=== PATIENT | female | born 1965 | race Caucasian/White ===

== ENCOUNTER → 2018-06-03 09:17 | Outpatient (CLI) | payer OTHER, SELFPAY ==
--- NOTE | 2018-06-03 | DI.US.S_ITS ---
PROCEDURE: US PELVIC COMPLETE INDICATIONS: ABNORMAL UTERINE BLEEDING TECHNIQUE: Real-time scanning was performed of the pelvic organs, with image documentation. Additional endovaginal scanning was necessary due to incomplete visualization of the adnexal and endometrial structures by transabdominal scanning. COMPARISON: [facility], [place], ABDOMEN COMPLETE, 01/23/2017, 7:23. FINDINGS: Transabdominal scanning: Limited scanning through the kidneys shows no hydronephrosis. No pathologic free abdominal or pelvic fluid. Endovaginal scanning: Uterus: Uterus is normal in size at 10.8 x 7.5 x 5.7 cm. The endometrium measures 23 mm in combined thickness. There is also a vascular stalk seen along the lower uterine segment and the cervix, without a donavan associated polyp identified. Hypoechoic uterine lesions are seen, which are attributed to fibroids. They measure as follows: Right anterior uterus, subserosal, 3.3 x 2.7 x 3.2 cm, with internal calcification Right posterior uterus, subserosal, 1.7 x 1.6 x 2.1 cm Mid anterior uterus, subserosal, 1.2 x 1.2 x 1.4 cm Ovaries: The left ovary is not seen, secondary to bowel. The right ovary measures 3.2 x 2.3 x 2.1 cm. Within it, there is a 2.3 cm simple cyst. IMPRESSION: Thickened endometrial stripe measuring 2.3 cm. There is a vascular stalk seen along the endometrial canal at the level of the lower uterine segment and cervix, without a donavan polyp attached. As clinically appropriate, please correlate with hysteroscopic findings. Subserosal fibroids are seen. Left ovary not seen, secondary to overlying bowel gas. Dictated by: Philip Harrington M.D. on 06/03/2018 at 9:12 Approved by: Philip Harrington M.D. on 06/03/2018 at 9:18
== END ==
PROVIDERS: Visit Provider Nurse Practitioner Family
DX: N93.9 Abnormal uterine and vaginal bleeding, unspecified (principal); D25.2 Subserosal leiomyoma of uterus; N83.291 Other ovarian cyst, right side; N71.9 Inflammatory disease of uterus, unspecified; R93.89 Abnormal findings on diagnostic imaging of other specified body structures
CPT/HCPCS: 76830; 76856

== ENCOUNTER → 2018-06-29 08:15 | Outpatient (CLI) | payer OTHER, SELFPAY ==
[2018-06-29 09:56] LABS: HEMOLYSIS < 15 (0-50)
[2018-06-29 09:58] LABS: Add Manual Diff / Slide Review NO; Basophils Percent Auto 0.9 % (0-2); Eosinophils Percent Auto 1.3 % (2-4); Hematocrit 31.2 % (36-46); Hemoglobin 10.6 g/dL (12.0-16.0); Lymphocytes Percent Auto 29.2 % (25-40); Mean Corpuscular Hemoglobin 31.6 PG (26-34); Mean Corpuscular Volume 92.9 fL (80-100); Monocytes Percent Auto 7.2 % (3-14); Neutrophils Absolute Auto 3700 /uL (3000-5900); Neutrophils Percent Auto 61.4 % (50-75); Platelet Count 216 X10^3/uL (150-400); Red Blood Cell Count 3.36 X10^6/uL (4.0-5.2); Red Cell Distribution Width 13.9 % (11.6-14.8); White Blood Cell Count 6.1 X10^3/uL (4.5-11.0)
[2018-06-29 10:06] LABS: Alanine Aminotransferase 30 IU/L (9-52); Albumin 4.2 g/dL (3.5-5.0); Albumin Globulin Ratio 1.7 (1.0-2.8); Alkaline Phosphatase 40 U/L (38-126); Aspartate Aminotransferase 26 IU/L (14-36); Bilirubin Total 0.2 mg/dL (0.2-1.3); Blood Urea Nitrogen 9 mg/dL (7-17); Calcium 8.7 mg/dL (8.4-10.2); Carbon Dioxide 27 mmol/L (22-32); Chloride 98 mmol/L (98-107); Cholesterol 144 mg/dL (140-199); Estimated Glomerular Filt Rate > 60.0 mL/min (>60); Globulin 2.5 g/dL (1.7-4.1); Glucose 90 mg/dL (70-100); HDL Cholesterol 90 mg/dL (40-60); LDL Cholesterol Calculated 43 mg/dL (<100); Sodium 136 mmol/L (137-145); Total Protein 6.7 g/dL (6.3-8.2); Triglycerides 55 mg/dL (35-150)
[2018-06-29 12:06] LABS: Ferritin 5.7 ng/mL (11.1-264)
== END ==
PROVIDERS: Family Provider Obstetrics & Gynecology; PCP Nurse Practitioner Family; Visit Provider Naturopath
DX: D50.9 Iron deficiency anemia, unspecified (principal)
CPT/HCPCS: 36415; 80053; 80061; 82728; 85025

== ENCOUNTER 2018-06-30 10:40 | Emergency (ER) | payer OTHER, SELFPAY ==
[2018-06-30 10:48] VITALS: BP 123/78; PULSE 76; RESP 16; TEMP 36.9; O2SAT 100; BMI 18.3
[2018-06-30 11:30] VITALS: BP 107/63; PULSE 59; O2SAT 100
--- NOTE | 2018-06-30 11:56 | ED.FEMALEGU ---
HPI - Female Genitourinary General Chief complaint: Vaginal Bleeding Stated complaint: hemorrhaging for 8 weeks Time Seen by Provider: 06/30/18 11:50 Source: patient Mode of arrival: ambulatory Limitations: no limitations History of Present Illness HPI Narrative: Patient states she has had vaginal bleeding of varying severity over the last 8 weeks. She states that after couple weeks of bleeding, she went to see her primary doctor, and ultimately, it is thought her OBGYN. An ultrasound was performed and patient was determined to have fibroids and possibly, a polyp. She states her doctor did a biopsy, and the lesions were found to be benign. However, patient has continued to have bleeding. She states her OB doctor, Dr. Santiago, prescribed oral contraceptives to help control the bleeding, but patient states that she is reluctant to take them, due to side effects, namely vomiting. 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 Patient states that today after changing her had, she stood up and blood and clots were just pouring down my legs. At this point, patient decided to come to the emergency department. She states she has been nauseated and tired. Patient states her doctor has been out of town, but patient believes that Dr. Santiago will be back in her office tomorrow. She states she called her cloth laminating supervisor, who told her that the oral contraceptives wouldn't work quickly enough. As such, patient did not take the oral contraceptives, and came here instead. Related Data Home Medications Medication Instructions Recorded Confirmed ascorbic acid (vitamin C) 500 mg mg PO cap 06/20/18 06/20/18 capsule lactobacillus combination no.9 4 4,000 mmu cells PO DAILY 06/20/18 06/20/18 billion cell capsule vitamin B complex tablet 1 tab PO DAILY 06/20/18 06/20/18 Previous Rx's Medication Instructions Recorded medroxyprogesterone 10 mg tablet 10 mg PO DAILY #30 tab 06/20/18 Allergies Allergy/AdvReac Type Severity Reaction Status Date / Time aspirin [ASPIRIN] Allergy Unknown Verified 06/30/18 10:54 Review of Systems Review of Systems All systems reviewed & are unremarkable except as noted in HPI and below Constitutional Denies chills, Denies fever(s), Denies lethargy and Denies weakness Eyes Denies change in vision, Denies eye discharge, Denies irritation and Denies loss of vision ENT Ears, Nose, Mouth, and Throat: Denies change in voice, Denies neck pain and Denies sore throat Cardiovascular Denies chest pain, Denies irregular heart rhythm, Denies lightheadedness, Denies palpitations, Denies dyspnea, Denies dyspnea on exertion and Denies orthopnea Respiratory Denies cough, Denies dyspnea, Denies dyspnea on exertion and Denies wheezing Gastrointestinal Gastrointestinal: Denies abdominal pain, Denies change in bowel habits, Denies diarrhea, Denies nausea and Denies vomiting Genitourinary Reports abnormal vaginal bleeding, Denies hematuria, Denies flank pain, Denies urinary incontinence and Denies urinary urgency Musculoskeletal Denies neck pain Integumentary/Breasts Denies pruritus, Denies erythema, Denies rash and Denies wounds Neurologic Denies confusion, Denies loss of vision and Denies weakness Psychiatric Denies anxiety, Denies confusion, Denies depression, Denies homicidal ideation and Denies suicidal ideation Endocrine Denies palpitations Hematologic/Lymphatic Denies easy bruising Allergic/Immunologic Denies wheezing [facility] Medical History Chronic headaches (Chronic 1994) DUB (dysfunctional uterine bleeding) (Chronic 2017) Eczema (Chronic 1985) Herpes (Chronic 1999) Migraines (Chronic 1989) Neck pain (Chronic) Shoulder pain (Chronic) Anemia (Resolved ~2008) Chicken pox (Resolved 1971) Gastric ulcer (Resolved 2012) Melanoma (Resolved 1995) Skin cancer (Resolved 1995) Surgical History Anesthesia (Resolved) History of right inguinal hernia repair (Resolved 1991) Family History Father Age: 76 Heart disease Pacemaker Grandmother Heart disease Grandfather Heart disease Stroke Grandmother Cancer Dementia Grandfather Adrenal tumor Mother No problems noted. Sister No problems noted. Social History Smoking Status: Former smoker Exam Initial Vital Signs Initial Vital Signs: Vital Signs Temperature 98.4 F 06/30/18 10:48 Pulse Rate 76 06/30/18 10:48 Respiratory Rate 16 06/30/18 10:48 Blood Pressure 123/78 06/30/18 10:48 Pulse Oximetry 100 06/30/18 10:48 Const General: cooperative and well developed Nutritional Appearance: well nourished Orientation: alert, awake, oriented x3 and not confused [facility] Head: normocephalic and atraumatic Ears: external ears normal Nose: external nose normal and No nasal discharge Face and sinus: face symmetric Mouth: oral mucosae normal and moist mucous membranes Teeth and gingiva: dentition normal Eyes General: appearance normal, both eyes and all related structures Eyelids: eyelids normal Conjunctivae: conjunctivae normal Sclera: sclerae normal Pupils: PERRL EOM: EOM intact bilaterally Neck Neck: normal visual inspection, trachea midline, No lymphadenopathy, No midline deformity and No JVD Lymphatic: No lymphedema Chest Chest: normal inspection of the chest Resp Effort & Inspection: normal respiratory effort, able to speak in complete sentences, no respiratory distress and no use of accessory muscles Auscultation: clear to auscultation bilaterally, no rales, no rhonchi and no wheezes Cardio Rate: regular rate Rhythm: regular rhythm Heart Sounds: no click, no gallops, no murmurs and no rubs Pulses: normal peripheral pulses GI Inspection: non-distended Palpation: soft, no hepatosplenomegaly, No guarding, No pulsatile mass and No tender Auscultation: normal bowel sounds Other: Patient has a moderate amount of red blood in her vaginal canal. no clots are noted. Cervical os is closed. There is no cervical motion tenderness; no mass on the cervix. No adnexal tenderness of significance. No adnexal mass. No palpable uterine mass. Back/Spine/Pelvis Back: No CVA tenderness Cervical Spine: cervical ROM normal and No pain with cervical ROM Thoracic/Lumbar Spine: thoracic and lumbar spine normal to inspection Skin General: no rashes or lesions noted, No jaundice and No petechiae Neuro General: alert, oriented x3, gait normal and no focal motor deficits Speech: speech normal Extrem General: full ROM, no clubbing, cyanosis or edema, no pedal edema and no calf tenderness Psych Appearance: well kempt Mental Status: mental status grossly normal Attitude: cooperative Thought Content: normal and suicidality Judgment: judgment good Course Course Narrative: The patient was given IV fluids and evaluated with laboratory studies. Her hemoglobin today was found to be 10.1 compared with 10.6 yesterday. He I did discuss with the patient that she has dropped somewhat, but that currently, her bleeding is not heavy. He I have discussed with her that the progesterone is likely to be quite helpful with her bleeding, and that she should strongly consider using it along with an antiemetic. Patient states she will try the progesterone. I have also advised her to call Dr. Santiago office 1st thing tomorrow morning, and I have faxed a personal note to Dr. Santiago from myself, letting her know of the patient's visit and the patient's concerns. Orders Ordered: Discontinued Medications Sodium Chloride (Normal Saline 0.9%) 1,000 mls @ 1,000 mls/hr IV BOLUS ONE Stop: 06/30/18 13:15 Last Infusion: 06/30/18 13:46 Dose: 0 mls/hr Admin: 06/30/18 12:29 Dose: 1,000 mls/hr Ondansetron HCl (Zofran) 4 mg IV NOW ONE Stop: 06/30/18 12:17 Last Admin: 06/30/18 12:29 Dose: 4 mg Vital Signs - 8 hr 06/30/18 10:48 06/30/18 11:30 06/30/18 12:30 Temperature 98.4 F Pulse Rate 76 59 L 60 Respiratory Rate 16 Blood Pressure 123/78 Blood Pressure [Left Arm] 107/63 102/61 Pulse Oximetry 100 100 100 MDM - Female Genitourinary Medical Records Attestation: I reviewed the patient's medical records. Lab Data Attestation: I reviewed the patient's lab results. Result diagrams: 06/30/18 11:30 06/30/18 11:30 Lab Results 06/30/18 06/30/18 Range/Units 11:30 11:30 WBC 5.4 (4.5-11.0) X10^3/uL RBC 3.21 L (4.0-5.2) X10^6/uL Hgb 10.1 L (12.0-16.0) g/dL Hct 29.8 L (36-46) % MCV 92.9 (80-100) fL MCH 31.5 (26-34) PG MCHC 33.9 (30-36) % RDW 13.7 (11.6-14.8) % Plt Count 188 (150-400) X10^3/uL Neut % (Auto) 61.6 (50-75) % Lymph % (Auto) 27.5 (25-40) % [place] % (Auto) 8.8 (3-14) % Eos % (Auto) 1.1 L (2-4) % Baso % (Auto) 1.0 (0-2) % Neut # (Auto) 3300 (9330-7684) /uL Sodium 135 L (137-145) mmol/L Potassium 4.0 (3.4-5.1) mmol/L Chloride 100 (98-107) mmol/L Carbon Dioxide 28 (22-32) mmol/L BUN 10 (7-17) mg/dL Creatinine 0.60 (0.52-1.04) mg/dL Estimated GFR > 60.0 (>60) mL/min BUN/Creatinine Ratio 16.7 (6-22) Glucose 87 (70-100) mg/dL Calcium 8.7 (8.4-10.2) mg/dL Total Bilirubin 0.3 (0.2-1.3) mg/dL AST 32 (14-36) IU/L ALT 26 (9-52) IU/L Alkaline Phosphatase 33 L (38-126) U/L Total Protein 6.3 (6.3-8.2) g/dL Albumin 3.8 (3.5-5.0) g/dL Globulin 2.5 (1.7-4.1) g/dL Albumin/Globulin Ratio 1.5 (1.0-2.8) Point of Care Testing Test Results Negative Urine Dip Bedside Urine Glucose Negative Bedside Urine Bilirubin - Negative Bedside Urine Ketone - Negative Urine Specific [place] 1.005 Bedside Urine Occult Blood +++ Bedside Urine pH 8.0 Bedside Urine Protein - Negative Bedside Urine Urobilinogen - Negative Bedside Urine Nitrite - Negative Bedside Urine Leukocytes - Negative Esterase MDM Narrative Medical decision making narrative: Patient was hemodynamically stable in the emergency department, and I felt she was stable for discharge home. Discharge Plan Departure Patient Disposition: Home Clinical Impression: Dysfunctional uterine bleeding Discharge Date/Time: 06/30/18 14:40 Interventions: ED Discharge Assessment Last Done: 06/30/18 14:40 Instructions: DI for Vaginal Bleeding Activity Restrictions/Additional Instructions: Please take your he progesterone, as directed by her OBGYN. Please call Dr. Santiago office 1st thing tomorrow morning, to set up an appointment for follow-up as soon as possible. Drink plenty of fluids. If you began to have very heavy vaginal bleeding again and faint then please return to the Emergency Department without delay. At this time, you have some degree of anemia, but you are not at the point of needing a transfusion at this time. Prescriptions: No Action ascorbic acid (vitamin C) 500 mg capsule PO RF: 0 vitamin B complex [B Complex 1] tablet 1 tab PO DAILY RF: 0 lactobacillus combination no.9 [Adult 50+ Probiotic] 4 billion cell capsule 4,000 mmu cells PO DAILY RF: 0 medroxyprogesterone 10 mg tablet 10 mg PO DAILY Qty: 30 RF: 0 Referrals: Barbara Santiago MD [Family Provider] - ( Call tomorrow to set up a follow-up appointment.) Maria De Jesus Hernandez ARNP [Primary Care Provider] -
[2018-06-30 12:27] LABS: Add Manual Diff / Slide Review NO; Eosinophils Percent Auto 1.1 % (2-4); Hematocrit 29.8 % (36-46); Hemoglobin 10.1 g/dL (12.0-16.0); Lymphocytes Percent Auto 27.5 % (25-40); Mean Corpuscular HGB Conc 33.9 % (30-36); Mean Corpuscular Hemoglobin 31.5 PG (26-34); Mean Corpuscular Volume 92.9 fL (80-100); Monocytes Percent Auto 8.8 % (3-14); Neutrophils Absolute Auto 3300 /uL (3000-5900); Neutrophils Percent Auto 61.6 % (50-75); Platelet Count 188 X10^3/uL (150-400); Red Blood Cell Count 3.21 X10^6/uL (4.0-5.2); Red Cell Distribution Width 13.7 % (11.6-14.8); White Blood Cell Count 5.4 X10^3/uL (4.5-11.0)
[2018-06-30] MEDS: ONDANSETRON 4 MG/2 ML INJ IV (12:29)
[2018-06-30] MEDS: SODIUM CHLORIDE 0.9% 1,000 ML 1000 ML IV (12:29)
[2018-06-30 12:30] VITALS: BP 102/61; PULSE 60; O2SAT 100
[2018-06-30 12:33] LABS: Alanine Aminotransferase 26 IU/L (9-52); Albumin 3.8 g/dL (3.5-5.0); Albumin Globulin Ratio 1.5 (1.0-2.8); Alkaline Phosphatase 33 U/L (38-126); Aspartate Aminotransferase 32 IU/L (14-36); BUN Creatinine Ratio 16.7 (6-22); Bilirubin Total 0.3 mg/dL (0.2-1.3); Blood Urea Nitrogen 10 mg/dL (7-17); Calcium 8.7 mg/dL (8.4-10.2); Carbon Dioxide 28 mmol/L (22-32); Chloride 100 mmol/L (98-107); Estimated Glomerular Filt Rate > 60.0 mL/min (>60); Globulin 2.5 g/dL (1.7-4.1); Glucose 87 mg/dL (70-100); HEMOLYSIS 19 (0-50); Sodium 135 mmol/L (137-145); Total Protein 6.3 g/dL (6.3-8.2)
--- NOTE | 2018-06-30 13:47 | ED_ITS ---
HPI - Female Genitourinary General Chief complaint: Vaginal Bleeding Stated complaint: hemorrhaging for 8 weeks Time Seen by Provider: 06/30/18 11:50 Source: patient Mode of arrival: ambulatory Limitations: no limitations History of Present Illness HPI Narrative: Patient states she has had vaginal bleeding of varying severity over the last 8 weeks. She states that after couple weeks of bleeding , she went to see her primary doctor, and ultimately, it is thought her OBGYN. An ultrasound was performed and patient was determined to have fibroids and possibly, a polyp. She states her doctor did a biopsy, and the lesions were found to be benign. However, patient has continued to have bleeding. She states her OB doctor, Dr. Santiago, prescribed oral contraceptives to help control the bleeding, but patient states that she is reluctant to take them, due to side effects, namely vomiting. 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 Patient states that today after changing her had, she stood up and blood and clots were just pouring down my legs. At this point, patient decided to come to the emergency department. She states she has been nauseated and tired. Patient states her doctor has been out of town, but patient believes that Dr. Santiago will be back in her office tomorrow. She states she called her heavy threader, who told her that the oral contraceptives wouldn't work quickly enough. As such, patient did not take the oral contraceptives, and came here instead. Related Data Home Medications Medication Instructions Recorded Confirmed ascorbic acid (vitamin C) 500 mg mg PO cap 06/20/18 06/20/18 capsule lactobacillus combination no.9 4 4,000 mmu cells PO DAILY 06/20/18 06/20/18 billion cell capsule vitamin B complex tablet 1 tab PO DAILY 06/20/18 06/20/18 Previous Rx's Medication Instructions Recorded medroxyprogesterone 10 mg tablet 10 mg PO DAILY #30 tab 06/20/18 Allergies Allergy/AdvReac Type Severity Reaction Status Date / Time aspirin [ASPIRIN] Allergy Unknown Verified 06/30/18 10:54 Review of Systems Review of Systems All systems reviewed & are unremarkable except as noted in HPI and below Constitutional Denies chills, Denies fever(s), Denies lethargy and Denies weakness Eyes Denies change in vision, Denies eye discharge, Denies irritation and Denies loss of vision ENT Ears, Nose, Mouth, and Throat: Denies change in voice, Denies neck pain and Denies sore throat Cardiovascular Denies chest pain, Denies irregular heart rhythm, Denies lightheadedness, Denies palpitations, Denies dyspnea, Denies dyspnea on exertion and Denies orthopnea Respiratory Denies cough, Denies dyspnea, Denies dyspnea on exertion and Denies wheezing Gastrointestinal Gastrointestinal: Denies abdominal pain, Denies change in bowel habits, Denies diarrhea, Denies nausea and Denies vomiting Genitourinary Reports abnormal vaginal bleeding, Denies hematuria, Denies flank pain, Denies urinary incontinence and Denies urinary urgency Musculoskeletal Denies neck pain Integumentary/Breasts Denies pruritus, Denies erythema, Denies rash and Denies wounds Neurologic Denies confusion, Denies loss of vision and Denies weakness Psychiatric Denies anxiety, Denies confusion, Denies depression, Denies homicidal ideation and Denies suicidal ideation Endocrine Denies palpitations Hematologic/Lymphatic Denies easy bruising Allergic/Immunologic Denies wheezing [facility] Medical History Chronic headaches (Chronic 1994) DUB (dysfunctional uterine bleeding) (Chronic 2017) Eczema (Chronic 1985) Herpes (Chronic 1999) Migraines (Chronic 1989) Neck pain (Chronic) Shoulder pain (Chronic) Anemia (Resolved ~2008) Chicken pox (Resolved 1971) Gastric ulcer (Resolved 2012) Melanoma (Resolved 1995) Skin cancer (Resolved 1995) Surgical History Anesthesia (Resolved) History of right inguinal hernia repair (Resolved 1991) Family History Father Age: 76 Heart disease Pacemaker Grandmother Heart disease Grandfather Heart disease Stroke Grandmother Cancer Dementia Grandfather Adrenal tumor Mother No problems noted. Sister No problems noted. Social History Smoking Status: Former smoker Exam Initial Vital Signs Initial Vital Signs: Vital Signs Temperature 98.4 F 06/30/18 10:48 Pulse Rate 76 06/30/18 10:48 Respiratory Rate 16 06/30/18 10:48 Blood Pressure 123/78 06/30/18 10:48 Pulse Oximetry 100 06/30/18 10:48 Const General: cooperative and well developed Nutritional Appearance: well nourished Orientation: alert, awake, oriented x3 and not confused [facility] Head: normocephalic and atraumatic Ears: external ears normal Nose: external nose normal and No nasal discharge Face and sinus: face symmetric Mouth: oral mucosae normal and moist mucous membranes Teeth and gingiva: dentition normal Eyes General: appearance normal, both eyes and all related structures Eyelids: eyelids normal Conjunctivae: conjunctivae normal Sclera: sclerae normal Pupils: PERRL EOM: EOM intact bilaterally Neck Neck: normal visual inspection, trachea midline, No lymphadenopathy, No midline deformity and No JVD Lymphatic: No lymphedema Chest Chest: normal inspection of the chest Resp Effort & Inspection: normal respiratory effort, able to speak in complete sentences, no respiratory distress and no use of accessory muscles Auscultation: clear to auscultation bilaterally, no rales, no rhonchi and no wheezes Cardio Rate: regular rate Rhythm: regular rhythm Heart Sounds: no click, no gallops, no murmurs and no rubs Pulses: normal peripheral pulses GI Inspection: non-distended Palpation: soft, no hepatosplenomegaly, No guarding, No pulsatile mass and No tender Auscultation: normal bowel sounds Other: Patient has a moderate amount of red blood in her vaginal canal. no clots are noted. Cervical os is closed. There is no cervical motion tenderness ; no mass on the cervix. No adnexal tenderness of significance. No adnexal mass. No palpable uterine mass. Back/Spine/Pelvis Back: No CVA tenderness Cervical Spine: cervical ROM normal and No pain with cervical ROM Thoracic/Lumbar Spine: thoracic and lumbar spine normal to inspection Skin General: no rashes or lesions noted, No jaundice and No petechiae Neuro General: alert, oriented x3, gait normal and no focal motor deficits Speech: speech normal Extrem General: full ROM, no clubbing, cyanosis or edema, no pedal edema and no calf tenderness Psych Appearance: well kempt Mental Status: mental status grossly normal Attitude: cooperative Thought Content: normal and suicidality Judgment: judgment good Course Course Narrative: The patient was given IV fluids and evaluated with laboratory studies. Her hemoglobin today was found to be 10.1 compared with 10.6 yesterday. He I did discuss with the patient that she has dropped somewhat , but that currently, her bleeding is not heavy. He I have discussed with her that the progesterone is likely to be quite helpful with her bleeding, and that she should strongly consider using it along with an antiemetic. Patient states she will try the progesterone. I have also advised her to call Dr. Santiago office 1st thing tomorrow morning, and I have faxed a personal note to Dr. Santiago from myself, letting her know of the patient's visit and the patient's concerns. Orders Ordered: Discontinued Medications Sodium Chloride (Normal Saline 0.9%) 1,000 mls @ 1,000 mls/hr IV BOLUS ONE Stop: 06/30/18 13:15 Last Infusion: 06/30/18 13:46 Dose: 0 mls/hr Admin: 06/30/18 12:29 Dose: 1,000 mls/hr Ondansetron HCl (Zofran) 4 mg IV NOW ONE Stop: 06/30/18 12:17 Last Admin: 06/30/18 12:29 Dose: 4 mg Vital Signs - 8 hr 06/30/18 10:48 06/30/18 11:30 06/30/18 12:30 Temperature 98.4 F Pulse Rate 76 59 L 60 Respiratory Rate 16 Blood Pressure 123/78 Blood Pressure [Left Arm] 107/63 102/61 Pulse Oximetry 100 100 100 MDM - Female Genitourinary Medical Records Attestation: I reviewed the patient's medical records. Lab Data Attestation: I reviewed the patient's lab results. Result diagrams: 06/30/18 11:30 06/30/18 11:30 Lab Results 06/30/18 06/30/18 Range/Units 11:30 11:30 WBC 5.4 (4.5-11.0) X10^3/uL RBC 3.21 L (4.0-5.2) X10^6/uL Hgb 10.1 L (12.0-16.0) g/dL Hct 29.8 L (36-46) % MCV 92.9 (80-100) fL MCH 31.5 (26-34) PG MCHC 33.9 (30-36) % RDW 13.7 (11.6-14.8) % Plt Count 188 (150-400) X10^3/uL Neut % (Auto) 61.6 (50-75) % Lymph % (Auto) 27.5 (25-40) % [place] % (Auto) 8.8 (3-14) % Eos % (Auto) 1.1 L (2-4) % Baso % (Auto) 1.0 (0-2) % Neut # (Auto) 3300 (3155-1444) /uL Sodium 135 L (137-145) mmol/L Potassium 4.0 (3.4-5.1) mmol/L Chloride 100 (98-107) mmol/L Carbon Dioxide 28 (22-32) mmol/L BUN 10 (7-17) mg/dL Creatinine 0.60 (0.52-1.04) mg/dL Estimated GFR > 60.0 (>60) mL/min BUN/Creatinine Ratio 16.7 (6-22) Glucose 87 (70-100) mg/dL Calcium 8.7 (8.4-10.2) mg/dL Total Bilirubin 0.3 (0.2-1.3) mg/dL AST 32 (14-36) IU/L ALT 26 (9-52) IU/L Alkaline Phosphatase 33 L (38-126) U/L Total Protein 6.3 (6.3-8.2) g/dL Albumin 3.8 (3.5-5.0) g/dL Globulin 2.5 (1.7-4.1) g/dL Albumin/Globulin Ratio 1.5 (1.0-2.8) Point of Care Testing Test Results Negative Urine Dip Bedside Urine Glucose Negative Bedside Urine Bilirubin - Negative Bedside Urine Ketone - Negative Urine Specific [place] 1.005 Bedside Urine Occult Blood +++ Bedside Urine pH 8.0 Bedside Urine Protein - Negative Bedside Urine Urobilinogen - Negative Bedside Urine Nitrite - Negative Bedside Urine Leukocytes - Negative Esterase MDM Narrative Medical decision making narrative: Patient was hemodynamically stable in the emergency department, and I felt she was stable for discharge home. Discharge Plan Departure Patient Disposition: Home Clinical Impression: Dysfunctional uterine bleeding Discharge Date/Time: 06/30/18 14:40 Interventions: ED Discharge Assessment Last Done: 06/30/18 14:40 Instructions: DI for Vaginal Bleeding Activity Restrictions/Additional Instructions: Please take your he progesterone, as directed by her OBGYN. Please call Dr. Santiago office 1st thing tomorrow morning, to set up an appointment for follow-up as soon as possible. Drink plenty of fluids. If you began to have very heavy vaginal bleeding again and faint then please return to the Emergency Department without delay. At this time, you have some degree of anemia, but you are not at the point of needing a transfusion at this time. Prescriptions: No Action ascorbic acid (vitamin C) 500 mg capsule PO RF: 0 vitamin B complex [B Complex 1] tablet 1 tab PO DAILY RF: 0 lactobacillus combination no.9 [Adult 50+ Probiotic] 4 billion cell capsule 4,000 mmu cells PO DAILY RF: 0 medroxyprogesterone 10 mg tablet 10 mg PO DAILY Qty: 30 RF: 0 Referrals: Barbara Santiago MD [Family Provider] - ( Call tomorrow to set up a follow- up appointment.) Maria De Jesus Hernandez ARNP [Primary Care Provider] -
[2018-06-30 14:39] VITALS: BP 110/78; PULSE 82; RESP 18; O2SAT 99
== END 2018-06-30 14:40 | disposition home or self-care (01) ==
PROVIDERS: Emergency Provider Emergency Medicine; Family Provider Obstetrics & Gynecology; PCP Nurse Practitioner Family
DX: N93.8 Other specified abnormal uterine and vaginal bleeding (principal)
CPT/HCPCS: 80053; 81003; 81025; 85025; 96361; 96374; 99283; 99284; J2405

== ENCOUNTER 2018-07-05 11:39 | Day surgery (SDC) | payer OTHER, SELFPAY ==
[2018-07-02 17:03] VITALS: BMI 18.6
[2018-07-05] VITALS (7 sets, daily range): BP systolic 112–132; BP diastolic 55–80; PULSE 58–73; RESP 12–18; TEMP 36.8–37.6; O2SAT 99–100; BMI 18.6
--- NOTE | 2018-07-05 | PATH_ITS ---
[facility] Accession Number: [id number] . 01 Material submitted: . ENDOMETRIAL CURETTINGS . 02 Diagnosis: Endometrium, Curettings: Secretory endometrium with focal features suggestive of glandular and stromal breakdown. No evidence of neoplasia or hyperplasia. MRV/07/09/2018 . 02 Electronically signed: . Beata Kate MD, Pathologist NPI- [id number] . 01 Gross description: . Received one formalin-filled container labeled with the patient's name and labeled endometrial curettings. The specimen consists of approximately a 1.0 cc aggregate of tissue, mucoid material and blood, which is filtered, wrapped and entirely submitted in one cassette. ([facility] [place]:[id number]) /[facility] . 02 Pathologist provided ICD-10: N92.6 . 02 CPT . 338168 Performed at: 01 [facility] [address], [place], [place] [id number] MD Darius Seymour MD Phone: [phone] Performed at: 02 [facility] [address] [place], [place] [id number] MD Beata Kate MD Phone: [phone]
[2018-07-05] MEDS: LACTATED RINGERS 1,000 ML 100 ML IV (12:37)
--- NOTE | 2018-07-05 13:14 | PM.PREOP ---
Pre-operative Note Interval Note Pre-op Check: Yes History & Physical exam performed today by Physician Changes: No
--- NOTE | 2018-07-05 13:35 | SUR.OPER ---
Lithotomy on padded OR bed, head on pillow, arms secured on padded arm boards at <90 degrees abduction. Legs secured in padded yellow fins stirrups.
--- NOTE | 2018-07-07 19:04 | PM.GYNOP.1 ---
Operative Date/Time/Diagnoses Date of procedure: 07/05/18 Time of procedure: 13:30 Pre-op diagnosis: Abnormal uterine bleeding Endometrial hyperplasia Post-op diagnosis: same Procedure: Procedures Operation Date: 07/05/18 13:00 Actual Procedures Side Surgeon p Hysteroscopy D&C w/Novasure Ablation Not Applicable Barbara Santiago MD Indications: Abnormal uterine bleeding Endometrial hyperplasia Surgeon: Barbara Santiago Anesthesia Type: General (LMA) Operative Notes Findings: 9 week size anteverted uterus Both fallopian tube ostia observed Thickened endometrial lining posteriorly Length of the uterus 6.0 cm, with of the uterus 4.7 cm, power 155 w, time 74 sec Closure Type: not applicable Specimen(s): endometrial curettings Applied: catheter (In and out) Estimated blood loss (mL): 15 Blood products transfused: none Procedure in detail: After informed consent was obtained, the patient was taken to the operating room where she was placed in the dorsal supine position. After adequate LMA general anesthesia was achieved, she was placed in the dorsal lithotomy position, and prepped and draped in the usual sterile fashion. A time-out was performed. A bivalve speculum was placed into the vagina and the anterior lip of the cervix grasped with a single-tooth tenaculum. The cervical os was sequentially dilated until the hysteroscope could passed easily into the endometrial cavity. Both fallopian tube ostia were observed. There was a thickened lining throughout. The hysteroscope was removed. Sharp curettage was performed yielding a large amount of endometrial curettings. The uterus was measured from the internal os to the fundus of the uterus and measured 6 cm. This was set on the NovaSure catheter as well as the generator. The NovaSure catheter passed easily into the endometrial cavity and was opened. The with indicated 4.7 cm. This was also set on the generator. This indicated a power of 155 w. The cervix was capped, the cavity assessment was performed and passed. The cycle lasted 74 sec. At the completion of the cycle the cervix was on capped, the NovaSure catheter was closed and removed from the uterus. The single-tooth tenaculum was removed from the anterior lip of the cervix. The bivalve speculum was removed from the vagina. Sponge, lap, and instrument counts were correct x2. The patient tolerated the procedure well, and was taken to PACU in stable condition. Complications: none Post-operative Condition: stable Disposition: PACU Plan for aftercare: Home after recovery
--- NOTE | 2018-07-07 19:09 | PM.GYNHP.1 ---
History of Present Illness Narrative: Adry Victoria is a 52 year old female who presents today for a D&C hysteroscopy and NovaSure endometrial ablation secondary to abnormal uterine bleeding [facility] History Uterine fibroid (Acute) Chronic headaches (Chronic 1994) DUB (dysfunctional uterine bleeding) (Chronic 2017) Eczema (Chronic 1985) Herpes (Chronic 1999) Migraines (Chronic 1989) Neck pain (Chronic) Shoulder pain (Chronic) Anemia (Resolved ~2008) Chicken pox (Resolved 1971) Gastric ulcer (Resolved 2012) Melanoma (Resolved 1995) Skin cancer (Resolved 1995) Surgical History Anesthesia (Resolved) History of right inguinal hernia repair (Resolved 1991) Social History household members: significant other Smoking Status: Former smoker Meds Home Medications Medication Instructions Recorded Confirmed Type ascorbic acid (vitamin C) 500 mg 500 mg PO DAILY cap 06/20/18 07/05/18 History capsule lactobacillus combination no.9 4 1 cap PO DAILY 06/20/18 07/05/18 History billion cell capsule vitamin B complex tablet 1 tab PO DAILY 06/20/18 07/05/18 History medroxyprogesterone 10 mg tablet 10 mg PO .COMPLEX #120 tab 07/02/18 07/05/18 Rx oxycodone-acetaminophen [Percocet] 1 tab PO Q4-6H PRN #10 tab 07/05/18 Rx Allergies Allergy/AdvReac Type Severity Reaction Status Date / Time aspirin [ASPIRIN] Allergy Unknown Verified 07/05/18 12:33 Exam Vital Signs (past 8 hours): Oxygen Delivery Method Room Air Narrative Exam Narrative: HEENT: No thyromegaly, no anterior cervical or supraclavicular lymphadenopathy. Lungs:Clear to auscultation bilaterally, no wheezes. Cardiovascular: Regular rate and rhythm, no murmurs, rubs, or gallops. Abdomen: No scars. No hepatosplenomegaly. No masses palpable. External genitalia: Normal Vagina: Normal Cervix: Normal Bimanual exam: 10 Week size uterus. Mobile. Rectal: No masses. Assessment & Plan (1) Dysfunctional uterine bleeding: Current visit: No Status: Acute Plan: Assessment/Plan Narrative: Assessment: 52-year-old with abnormal uterine bleeding and a thickened endometrial lining by ultrasound Negative endometrial biopsy Plan: D&C hysteroscopy with NovaSure endometrial ablation The risks, benefits, and alternatives to the procedure were explained to the patient. The risks including bleeding, infection, and uterine perforation. She understands these risks and agrees to proceed. A full PAR-Q was held and consent form was signed.
--- NOTE | 2018-07-07 19:13 | P.HPOB_ITS ---
History of Present Illness Narrative: Adry Victoria is a 52 year old female who presents today for a D& C hysteroscopy and NovaSure endometrial ablation secondary to abnormal uterine bleeding [facility] Medical History Uterine fibroid (Acute) Chronic headaches (Chronic 1994) DUB (dysfunctional uterine bleeding) (Chronic 2017) Eczema (Chronic 1985) Herpes (Chronic 1999) Migraines (Chronic 1989) Neck pain (Chronic) Shoulder pain (Chronic) Anemia (Resolved ~2008) Chicken pox (Resolved 1971) Gastric ulcer (Resolved 2012) Melanoma (Resolved 1995) Skin cancer (Resolved 1995) Surgical History Anesthesia (Resolved) History of right inguinal hernia repair (Resolved 1991) Social History household members: significant other Smoking Status: Former smoker Meds Home Medications Medication Instructions Recorded Confirmed Type ascorbic acid (vitamin C) 500 mg 500 mg PO DAILY cap 06/20/18 07/05/18 History capsule lactobacillus combination no.9 4 1 cap PO DAILY 06/20/18 07/05/18 History billion cell capsule vitamin B complex tablet 1 tab PO DAILY 06/20/18 07/05/18 History medroxyprogesterone 10 mg tablet 10 mg PO .COMPLEX #120 tab 07/02/18 07/05/18 Rx oxycodone-acetaminophen [Percocet] 1 tab PO Q4-6H PRN #10 tab 07/05/18 Rx Allergies Allergy/AdvReac Type Severity Reaction Status Date / Time aspirin [ASPIRIN] Allergy Unknown Verified 07/05/18 12:33 Exam Vital Signs (past 8 hours): Oxygen Delivery Method Room Air Narrative Exam Narrative: HEENT: No thyromegaly, no anterior cervical or supraclavicular lymphadenopathy. Lungs:Clear to auscultation bilaterally, no wheezes. Cardiovascular: Regular rate and rhythm, no murmurs, rubs, or gallops. Abdomen: No scars. No hepatosplenomegaly. No masses palpable. External genitalia: Normal Vagina: Normal Cervix: Normal Bimanual exam: 10 Week size uterus. Mobile. Rectal: No masses. Assessment & Plan (1) Dysfunctional uterine bleeding: Current visit: No Status: Acute Plan: Assessment/Plan Narrative: Assessment: 52-year-old with abnormal uterine bleeding and a thickened endometrial lining by ultrasound Negative endometrial biopsy Plan: D&C hysteroscopy with NovaSure endometrial ablation The risks, benefits, and alternatives to the procedure were explained to the patient. The risks including bleeding, infection, and uterine perforation. She understands these risks and agrees to proceed. A full PAR-Q was held and consent form was signed.
== END 2018-07-05 14:55 | disposition home or self-care (01) ==
PROVIDERS: Family Provider Obstetrics & Gynecology; PCP Nurse Practitioner Family; Visit Provider Obstetrics & Gynecology
PROC: 0U5B8ZZ Destruction of Endometrium, Via Natural or Artificial Opening Endoscopic (ICD-10-PCS; CPT 58563; principal; 2018-07-05 13:00)
DX: N93.9 Abnormal uterine and vaginal bleeding, unspecified (principal); N85.00 Endometrial hyperplasia, unspecified; Z87.891 Personal history of nicotine dependence; G43.909 Migraine, unspecified, not intractable, without status migrainosus
CPT/HCPCS: 58563; J1100; J1885; J2405; J2704

== ENCOUNTER → 2019-09-29 14:06 | Outpatient (CLI) | payer OTHER, SELFPAY ==
[2019-09-29 16:15] LABS: Add Manual Diff / Slide Review NO; Basophils Absolute Auto 0 /uL (0-100); Basophils Percent Auto 0.4 % (0-2); Eosinophils Absolute Auto 100 /uL (0-450); Eosinophils Percent Auto 1.3 % (2-4); Hematocrit 37.8 % (36-46); Hemoglobin 12.8 g/dL (12.0-16.0); Lymphocytes Absolute Auto 2500 /uL (1100-4500); Lymphocytes Percent Auto 35.4 % (25-40); Mean Corpuscular HGB Conc 33.8 % (30-36); Mean Corpuscular Hemoglobin 30.6 PG (26-34); Mean Corpuscular Volume 90.6 fL (80-100); Monocytes Absolute Auto 400 /uL (0-900); Monocytes Percent Auto 6.4 % (3-14); Neutrophils Absolute Auto 3900 /uL (1500-7000); Neutrophils Percent Auto 56.5 % (50-75); Platelet Count 224 X10^3/uL (150-400); Red Blood Cell Count 4.18 X10^6/uL (4.0-5.2); Red Cell Distribution Width 13.5 % (11.6-14.8)
[2019-09-29 16:30] LABS: Alanine Aminotransferase 21 IU/L (<35); Albumin 4.8 g/dL (3.5-5.0); Albumin Globulin Ratio 1.7 (1.0-2.8); Alkaline Phosphatase 51 U/L (38-126); Aspartate Aminotransferase 35 IU/L (14-36); BUN Creatinine Ratio 18.3 (6-22); Bilirubin Total 0.4 mg/dL (0.2-1.3); Blood Urea Nitrogen 11 mg/dL (7-17); Calcium 9.6 mg/dL (8.4-10.2); Carbon Dioxide 31 mmol/L (22-32); Chloride 98 mmol/L (98-107); Cholesterol 183 mg/dL (140-199); Estimated Glomerular Filt Rate > 60.0 mL/min (>60); Globulin 2.9 g/dL (1.7-4.1); Glucose 99 mg/dL (70-100); HDL Cholesterol 85 mg/dL (40-60); HEMOLYSIS < 15 (0-50); LDL Cholesterol Calculated 79 mg/dL (<100); Sodium 136 mmol/L (137-145); Total Protein 7.7 g/dL (6.3-8.2); Triglycerides 97 mg/dL (35-150)
[2019-09-29 16:48] LABS: Free T3, Triiodothyronine Free 3.66 pg/mL (2.77-5.27)
[2019-09-29 17:02] LABS: Thyroid Stimulating Hormone 0.75 uIU/mL (0.47-4.68)
[2019-09-29 17:04] LABS: Ferritin 14.4 ng/mL (11.1-264)
== END ==
PROVIDERS: Family Provider Obstetrics & Gynecology; PCP Naturopath; Referring Provider Naturopath; Visit Provider Naturopath
DX: Z00.00 Encounter for general adult medical examination without abnormal findings (principal); R59.0 Localized enlarged lymph nodes; R53.83 Other fatigue
CPT/HCPCS: 36415; 80053; 80061; 82728; 84443; 84481; 85025

== ENCOUNTER → 2020-04-23 13:26 | Outpatient (CLI) | payer OTHER, SELFPAY ==
--- NOTE | 2020-04-23 13:53 | DI.MG.S_ITS ---
Patient Name: SHARIF GRANT date: 1965 Sex: F Attending Physician: Harjit Indications: Date: 04/23/2020 13:32 At the request of: GILSON WINSTON Procedure: MM diagnostic mammo BI BILATERAL DIGITAL DIAGNOSTIC MAMMOGRAM 3D/2D: 04/23/2020 CLINICAL: Bilateral breast pain. Comparison is made to exams dated: 03/08/2016 mammogram, 07/02/2014 mammogram, and 05/30/2013 mammogram - [facility]. The tissue of both breasts is extremely dense, which lowers the sensitivity of mammography. There are benign fibroadenomas with biopsy marking clips in the right breast. There is a mass in the right breast at 2 o'clock middle depth. This correlates as palpated. There is a biopsy clip associated with the mass. There are possible a grouped punctate calcifications in the left breast posterior depth superior region seen on the mediolateral oblique view only. These calcifications may have been partially seen on the prior mammogram from 07/02/2014, but are inconsistently visualized on additional exams. These are located in the region of reported breast thickening by the patient. No other significant masses or calcifications are seen in either breast. IMPRESSION: INCOMPLETE: NEEDS ADDITIONAL IMAGING EVALUATION The mass in the right breast at 2 o'clock middle depth is indeterminate. An ultrasound is recommended. The possible grouped punctate calcifications in the left breast posterior depth superior region seen on the mediolateral oblique view only are indeterminate. An ultrasound is recommended. This exam was interpreted at Station ID: [id number]. NOTE: For mammograms, a report in lay terms will be sent to the patient. Approximately 15% of breast malignancies will not be visualized mammographically. In the management of a palpable breast mass, a negative mammogram must not discourage biopsy of a clinically suspicious lesion. Continued Report - Page 2 of 2 Patient Name: SHARIF GRANT date: 1965 Sex: F Attending Physician: Harjit Indications: Date: 04/23/2020 13:32 At the request of: GILSON WINSTON Procedure: MM diagnostic mammo BI SUMMARY: Targeted ultrasound is recommended for further evaluation and will be scheduled immediately following this exam. Electronically Signed By: Champ holly/connie:04/23/2020 16:00:15 ACR BI-RADS Category 0: Incomplete [id number]
--- NOTE | 2020-04-23 14:41 | DI.MG.S_ITS ---
Patient Name: SHARIF GRANT date: 1965 Sex: F Attending Physician: Harjit Indications: Date: 04/23/2020 15:00 At the request of: GILSON WINSTON Procedure: US breast RT limited ULTRASOUND OF RIGHT BREAST: 04/23/2020 CLINICAL: Palpable right breast lump. Comparison is made to exams dated: 04/23/2020 mammogram, 03/08/2016 ultrasound, 03/08/2016 ultrasound, 03/08/2016 breast MRI, 03/08/2016 mammogram, and 07/23/2014 mammogram - [facility]. Color flow ultrasound of the right breast was performed. Garland scale images of the real-time examination were reviewed. There is a benign mass in the right breast at 2 o'clock posterior depth. This mass is hypoechoic. This correlates as palpated and with mammography findings. There is an associated biopsy clip. IMPRESSION: BENIGN There is no sonographic evidence of malignancy. The mass in the right breast is consistent with a fibroadenoma and is benign. This exam was interpreted at Station ID: [id number]. Electronically Signed By: Champ holly/connie:04/23/2020 16:02:15 Ultrasound BI-RADS: 2 Benign
--- NOTE | 2020-04-23 14:50 | DI.US.S_ITS ---
Patient Name: SHARIF GRANT date: 1965 Sex: F Attending Physician: Harjit Indications: Date: 04/23/2020 15:02 At the request of: GILSON WINSTON Procedure: US breast LT limited LIMITED ULTRASOUND OF LEFT BREAST: 04/23/2020 CLINICAL: Palpable left breast area of thickening. Comparison is made to exams dated: 04/23/2020 mammogram, 03/08/2016 ultrasound, 03/08/2016 ultrasound, 03/08/2016 breast MRI, 03/08/2016 mammogram, and 07/23/2014 mammogram - [facility]. Ultrasound of the left breast was performed. Garland scale images of the real-time examination were reviewed. No significant abnormalities were seen sonographically in the left breast. IMPRESSION: PROBABLY BENIGN There is no abnormality seen in the left breast to correspond with the palpable abnormality and mammography finding. A follow-up left mammogram in 6 months is recommended to demonstrate stability. This exam was interpreted at Station ID: [id number]. Electronically Signed By: Champ holly/connie:04/23/2020 16:05:26 letter sent: Followup Recommended Ultrasound BI-RADS: 3 Probably benign
== END ==
PROVIDERS: Family Provider Obstetrics & Gynecology; PCP Naturopath; Referring Provider Naturopath; Visit Provider Naturopath
DX: R92.8 Other abnormal and inconclusive findings on diagnostic imaging of breast (principal); N64.4 Mastodynia; D24.1 Benign neoplasm of right breast
CPT/HCPCS: 76642; 77066; 77080; G0279

== ENCOUNTER → 2022-12-01 12:49 | Outpatient (CLI) | payer OTHER, MEDICAID, SELFPAY ==
--- NOTE | 2022-12-01 12:58 | DI.DEXA.S_ITS ---
Bone Density Report Name: SHARIF GRANT Age: 57 Sex: Female Ethnicity: White Date of : 1965 Indication: postmenopausal osteoporosis; Referring Provider: RANDY MONTAGUE Study: Bone densitometry was performed. Exam Date: December 01, 2022 Accession number: [id number] Bone Density: Region BMD T-score Z-score Classification AP Spine(L1-L4) 0.725 -2.9 -1.7 Osteoporosis Femoral Neck (Left) 0.513 -3.0 -1.9 Osteoporosis Total Hip (Left) 0.615 -2.7 -1.9 Osteoporosis Femoral Neck (Right) 0.563 -2.6 -1.4 Osteoporosis Total Hip (Right) 0.672 -2.2 -1.4 Osteopenia Total Hip Mean 0.644 -2.5 -1.7 Osteopenia World Health Organization criteria for BMD impression classify patients as: Normal (T-score at or above -1.0), Osteopenia (T-score between -1.0 and -2.5), or Osteoporosis (T-score at or below -2.5). 10-year Fracture Risk: FRAX not reported because: Some T-score for Spine Total or Hip Total or Femoral Neck at or below -2.5 Previous Exams: -- Region Exam Age BMD T-score BMD Change BMD Change Date g/cm2 vs Baseline vs Previous -- AP Spine (L1-L4) 12/01/2022 57 0.725 -2.9 -0.042 (-5.4%)# -0.042 (-5.4%)# 04/23/2020 54 0.767 -2.5 Total Hip(Left) 12/01/2022 57 0.615 -2.7 0.005 (0.9%)# 0.005 (0.9%)# 04/23/2020 54 0.609 -2.7 Total Hip(Right) 12/01/2022 57 0.672 -2.2 -0.017 (-2.5%)# -0.017 (-2.5%)# 04/23/2020 54 0.690 -2.1 -- *Denotes significance at 95% confidence level, LSC for AP Spine = 0.022 g/cm2, LSC for Total Hip = 0.027 g/cm2 # Denotes dissimilar scan types or analysis methods Impression: The patient has osteoporosis, based on the Left Femoral Neck T-score. No significant bone loss was observed. Discussion: INCREASED RISK OF FRACTURE. BONE DENSITY IS UNDESIRABLY LOW AT ONE OR MORE SKELETAL SITES, CONSISTENT WITH POSTMENOPAUSAL OSTEOPOROSIS. This patient's lowest T-score meets the World Health Organization's (WHO) criteria for osteoporosis at one or more sites (T-score -2.5 or below). In untreated patients, the risk of osteoporotic fracture increases approximately two-fold for each 1.0 SD decrease in T-score. Low bone density is not the only risk factor for fracture; also consider factors such as patient's age, frailty or poor health, risk of falling, risk of injury, previous osteoporotic fracture, family history of osteoporosis, cigarette smoking, low body weight, etc. Not everyone with low bone mineral density has osteoporosis; osteomalacia and other metabolic bone disorders should also be considered. Patients who have osteoporosis should be evaluated for specific diseases and conditions (secondary causes) that may cause or contribute to bone loss. The [place] Association of Clinical Endocrinologists (AACE) and National Osteoporosis Foundation (NOF) recommend pharmacologic intervention for all postmenopausal women whose T-score is in this range. The patient should follow a healthful lifestyle (good nutrition with adequate calcium and vitamin D, and appropriate weight-bearing exercise). Follow-Up: Consider a repeat BMD and Vertebral Fracture Assessment (VFA) exam in 2 years or sooner if medically necessary, to reassess this patient's status. Reported by: GEORGIE VIVAS M.D. on 12/01/2022 1:06:00 PM.
== END ==
PROVIDERS: Family Provider Obstetrics & Gynecology; PCP Naturopath; Referring Provider Family Medicine; Visit Provider Family Medicine
DX: M81.0 Age-related osteoporosis without current pathological fracture (principal)
CPT/HCPCS: 77080

== ENCOUNTER 2023-01-14 09:19 | Emergency (ER) | payer OTHER, MEDICAID, SELFPAY ==
[2023-01-14 09:26] VITALS: BP 154/65; PULSE 72; RESP 14; TEMP 36.7; O2SAT 99; BMI 18.3
--- NOTE | 2023-01-14 09:26 | DI.RAD.S_ITS ---
PROCEDURE: XR WRIST LT MIN 3V INDICATIONS: fall TECHNIQUE: 4 views of the wrist were acquired. COMPARISON: None. FINDINGS: Bones: No acute fracture or dislocation. Corticated calcification adjacent to the ulnar styloid may represent remote fracture. No suspicious bony lesions. Degenerative changes of the wrist most prominent at the triscaphe and carpometacarpal joint where it is mild. First Scaphoid view: No fracture. Soft tissues: No suspicious soft tissue calcifications. IMPRESSION: No acute osseous abnormality. Dictated by: Rafal Clemens D.O. on 01/14/2023 at 8:51 Approved by: Rafal Clemens D.O. on 01/14/2023 at 8:53
--- NOTE | 2023-01-14 10:36 | ED_ITS ---
HPI - Extremity Injury (Upper) General Chief Complaint: Extremity Injury, Upper Stated Complaint: lt wrist injury, poss fracture per pt Time Seen by Provider: 01/14/23 10:29 Source: patient Mode of arrival: Family Vehicle History of Present Illness HPI narrative: Patient is a 57-year-old healthy female who presents today with left wrist pain and injury. She reports that she was hiking today when she tripped and fell landing on her left wrist. She denies any other injury she was able to walk down she did not hit her head. She actually has a wrist brace on but she says any movement it is pretty painful. 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 Related Data Home Medications Medication Instructions Recorded Confirmed ascorbic acid (vitamin C) 500 mg 500 mg PO DAILY 06/20/18 07/05/18 capsule lactobacillus combination no.9 4 1 cap PO DAILY 06/20/18 07/05/18 billion cell capsule (Adult 50 Plus Probiotic) vitamin B complex (B Complex 1 1 tab PO DAILY 06/20/18 07/05/18 tablet) Previous Rx's Medication Instructions Recorded medroxyprogesterone 10 mg tablet 10 mg PO .COMPLEX #120 tabs 07/02/18 oxycodone-acetaminophen 5 mg-325 1 tab PO Q4-6H PRN pain #10 tabs 07/05/18 mg tablet (Percocet) Allergies Allergy/AdvReac Type Severity Reaction Status Date / Time aspirin [ASPIRIN] Allergy Unknown Verified 01/14/23 09:26 Review of Systems Review of Systems ROS Unobtainable: All systems reviewed & are unremarkable except as noted in HPI and below Patient History Medical History Anemia (~2008) Chicken pox (1971) Chronic headaches (1994) DUB (dysfunctional uterine bleeding) (2017) Eczema (1985) Gastric ulcer (2012) Herpes (1999) Melanoma (1995) Migraines (1989) Neck pain Shoulder pain Skin cancer (1995) Uterine fibroid Surgical History Anesthesia History of right inguinal hernia repair (1991) Family History Father Age: 81 Heart disease Pacemaker Grandmother Heart disease Grandfather Heart disease Stroke Grandmother Cancer Dementia Grandfather Adrenal tumor Mother No problems noted. Sister No problems noted. Social History household members: significant other Smoking Status: Former smoker Smoking Status: Former smoker tobacco type: cigarettes alcohol intake frequency: holidays/special occasions only Substance Use Type: does not use Exam Initial Vital Signs Initial Vital Signs: Vital Signs Temperature 98.1 F 01/14/23 09:26 Pulse Rate 72 01/14/23 09:26 Respiratory Rate 14 01/14/23 09:26 Blood Pressure 154/65 H 01/14/23 09:26 Pulse Oximetry 99 01/14/23 09:26 Oxygen Delivery Method Room Air 01/14/23 09:26 GENERAL: Alert left well-appearing 57 old female CARDIOVASCULAR: peripheral pulses in tact, cap refill <2 sec RESPIRATORY: No respiratory distress, speaks in full sentences without difficulty EXTREMITIES: Normal range of motion, no clubbing or edema. Neurovascularly intact Left wrist pain mild swelling no erythema cap refill less than 2 seconds pain with wrist flexion and extension limited range of motion distal radial pulse intact NEUROLOGICAL: Cranial nerves II through XII grossly intact. Normal gait and speech. SKIN: Warm, dry, no petechiae, no rashes or lesions. Course Orders Ordered: ED Orders 01/14/23 09:26 XR wrist LT min 3V Stat Vital Signs Vital signs: Vital Signs - 8 hr 01/14/23 09:26 Temperature 98.1 F Pulse Rate 72 Respiratory Rate 14 Blood Pressure 154/65 H Pulse Oximetry 99 Oxygen Delivery Method Room Air MDM - Extremity Injury (Upper) Imaging Data Extremity x-ray #1: Radiologist's Impression: PROCEDURE:? XR WRIST LT MIN 3V ? INDICATIONS: fall ? TECHNIQUE:? 4 views of the wrist were acquired.? ? COMPARISON:? None. ? FINDINGS:? ? Bones:? No acute fracture or dislocation.? Corticated calcification adjacent to the ulnar styloid may represent remote fracture.? No suspicious bony lesions.? Degenerative changes of the wrist most prominent at the triscaphe and carpometacarpal joint where it is mild.? First ? Scaphoid view:? No fracture. ? Soft tissues:? No suspicious soft tissue calcifications.? ? IMPRESSION:? ? No acute osseous abnormality.? ? Dictated by: Rafal Clemens D.O. on 01/14/2023 at 8:51? MDM Narrative Medical decision making narrative: Patient healthy 57 year old female who presents with left wrist pain after a mechanical fall yesterday while hiking. X-ray is negative for fracture. She is neurovascularly intact. Offered other pain medication but she would like to stick Tylenol and ibuprofen. At this time no other indication for workup Discharge Plan Departure Patient Disposition: Home Clinical Impression: Sprain and strain of wrist Instructions: Wrist Sprain Activity Restrictions/Additional Instructions: *You have been diagnosed with left wrist sprain *What to do: Increase activity as tolerated expect it to be sore for the 1st week but should start to get better. Wear brace as needed. Elevate and ice 20- 30 minutes at a time *Continue to take medications as directed Tylenol 1000 mg every 6 hours if needed for xthu-oa-qzpezlhn pain Ibuprofen 600 mg every 6 hours if needed for vuhq-ja-evrgwkdc pain *Follow up with your primary care provider in 2-3 days or call [phone] *Return to ER if you should have increasing pain swelling redness or any new, worsening or concerning symptoms Prescriptions: No Action medroxyprogesterone 10 mg tablet 10 mg PO .COMPLEX Qty: 120 2RF Rx Instructions: 10 mg PO ; Take 2TQ2H until bleeding stops,then [id number],then [id number],then [id number],then [id number],then [id number]. ascorbic acid (vitamin C) 500 mg capsule 500 mg PO DAILY vitamin B complex [B Complex 1] tablet 1 tab PO DAILY lactobacillus combination no.9 [Adult 50 Plus Probiotic] 4 billion cell capsule 1 cap PO DAILY oxycodone-acetaminophen [Percocet] 5-325 mg tablet 1 tab PO Q4-6H PRN (Reason: pain) Qty: 10 0RF Referrals: Yue Lombardi ND [Primary Care Provider] - Stand Alone Forms: Patient Portal/API
== END 2023-01-14 10:59 | disposition home or self-care (01) ==
PROVIDERS: Emergency Provider Emergency Medicine; Family Provider Obstetrics & Gynecology; PCP Naturopath
DX: S63.502A Unspecified sprain of left wrist, initial encounter (principal); S66.912A Strain of unspecified muscle, fascia and tendon at wrist and hand level, left hand, initial encounter; W01.0XXA Fall on same level from slipping, tripping and stumbling without subsequent striking against object, initial encounter; Y93.01 Activity, walking, marching and hiking
CPT/HCPCS: 73110; 99283

== ENCOUNTER → 2023-01-19 09:19 | Outpatient (CLI) | payer OTHER, MEDICAID, SELFPAY ==
[2023-01-19 09:52] LABS: Add Manual Diff / Slide Review NO; Basophils Absolute Auto 0 /uL (0-100); Basophils Percent Auto 0.6 % (0-2); Eosinophils Absolute Auto 100 /uL (0-450); Eosinophils Percent Auto 0.8 % (2-4); Hematocrit 37.8 % (36-46); Hemoglobin 12.8 g/dL (12.0-16.0); Lymphocytes Absolute Auto 2000 /uL (1100-4500); Lymphocytes Percent Auto 30.4 % (25-40); Mean Corpuscular HGB Conc 33.8 % (30-36); Mean Corpuscular Hemoglobin 30.7 PG (26-34); Mean Corpuscular Volume 90.7 fL (80-100); Monocytes Absolute Auto 500 /uL (0-900); Monocytes Percent Auto 6.9 % (3-14); Neutrophils Absolute Auto 4100 /uL (1500-7000); Neutrophils Percent Auto 61.3 % (50-75); Platelet Count 200 X10^3/uL (150-400); Red Blood Cell Count 4.16 X10^6/uL (4.0-5.2); Red Cell Distribution Width 13.4 % (11.6-14.8); White Blood Cell Count 6.7 X10^3/uL (4.5-11.0)
[2023-01-19 10:12] LABS: Alanine Aminotransferase 26 IU/L (<35); Albumin 4.6 g/dL (3.5-5.0); Albumin Globulin Ratio 1.9 (1.0-2.8); Alkaline Phosphatase 54 U/L (38-126); Aspartate Aminotransferase 33 IU/L (14-36); Bilirubin Total 0.5 mg/dL (0.2-1.3); Blood Urea Nitrogen 10 mg/dL (7-17); Calcium 9.1 mg/dL (8.4-10.2); Carbon Dioxide 28 mmol/L (22-32); Chloride 98 mmol/L (98-107); Cholesterol 163 mg/dL (140-199); Estimated Glomerular Filt Rate > 60 mL/min (>60); Globulin 2.4 g/dL (1.7-4.1); Glucose 93 mg/dL (70-100); HDL Cholesterol 92 mg/dL (40-60); HEMOLYSIS < 15 (0-50); LDL Cholesterol Calculated 59 mg/dL (<100); Potassium 4.2 mmol/L (3.4-5.1); Sodium 134 mmol/L (137-145); Triglycerides 58 mg/dL (35-150)
[2023-01-19 10:40] LABS: Ferritin 28 ng/mL (11-264)
== END ==
PROVIDERS: Family Provider Obstetrics & Gynecology; PCP Naturopath; Referring Provider Naturopath; Visit Provider Naturopath
DX: Z00.00 Encounter for general adult medical examination without abnormal findings (principal); D50.9 Iron deficiency anemia, unspecified; M81.0 Age-related osteoporosis without current pathological fracture
CPT/HCPCS: 36415; 80053; 80061; 82728; 85025

== ENCOUNTER → 2023-06-18 10:00 | Oncology outpatient (ONC) | payer OTHER, MEDICAID, SELFPAY ==
[2023-06-04] MEDS: IRON SUCROSE 200 MG in SODIUM CHLORIDE 0.9% 100 ML 220 MG IV (11:17)
[2023-06-04 11:57] VITALS: BP 101/65; PULSE 59; RESP 16; TEMP 36.9; O2SAT 100
--- NOTE | 2023-06-04 13:47 | PC.NURSE ---
Patient tolerated first iron sucrose infusion without problem. BP back up to 121/67 at end of 30 min monitoring period.
[2023-06-07 09:05] VITALS: BP 118/71; PULSE 69; RESP 18; TEMP 36.4; O2SAT 100
[2023-06-07] MEDS: IRON SUCROSE 200 MG in SODIUM CHLORIDE 0.9% 100 ML 220 MG IV (09:32)
[2023-06-11 10:08] VITALS: BP 119/66; PULSE 77; RESP 18; TEMP 37; O2SAT 100
[2023-06-11] MEDS: IRON SUCROSE 200 MG in SODIUM CHLORIDE 0.9% 100 ML 220 MG IV (10:39)
[2023-06-14] MEDS: IRON SUCROSE 200 MG in SODIUM CHLORIDE 0.9% 100 ML 220 MG IV (09:41)
[2023-06-14 09:50] VITALS: BP 105/63; PULSE 77; RESP 16; TEMP 36.8; O2SAT 98
[2023-06-18] MEDS: IRON SUCROSE 200 MG in SODIUM CHLORIDE 0.9% 100 ML 220 MG IV (10:18)
== END ==
PROVIDERS: Family Provider Obstetrics & Gynecology; PCP Naturopath; Referring Provider Family Medicine; Visit Provider Family Medicine
DX: E61.1 Iron deficiency (principal)
CPT/HCPCS: 96365; J1756